=== PATIENT | male | born 1955 | race Caucasian/White ===

== ENCOUNTER 2018-06-01 08:57 | Emergency (ER) | payer OTHER ==
[~2018-06-01] VITALS: Ht 182.9 cm; Wt 84.4 kg
[2018-06-01] MEDS ORDERED: PROSCAR 5MG TABL5 MG PO (09:12)
[2018-06-01] MEDS ORDERED: PREDNISONE 20 M20 MG PO (09:13)
[2018-06-01] MEDS ORDERED: SIMVASTATIN40 MG PO (09:13)
[2018-06-01] MEDS ORDERED: AMARYL4 MG PO (09:13)
[2018-06-01] MEDS ORDERED: TRADJENTA5 MG (09:13)
[2018-06-01] MEDS ORDERED: IMBRUVICA420 MG PO (09:14)
[2018-06-01] MEDS ORDERED: PROTONIX40 M1 PO (09:14)
[2018-06-01] MEDS ORDERED: GLUCOPHAGE XR500 MG PO (09:15)
[2018-06-01] MEDS ORDERED: FLOMAX0.4 MG PO (09:15)
[2018-06-01] MEDS ORDERED: PAXIL10 MG PO (09:15)
[2018-06-01 09:35] LABS: HEMATOCRIT 41.7 % (42.0-52.0); HEMOGLOBIN 14.1 gm/dL (14.0-18.0); MCH 31.9 pg (26.0-34.0); MCHC 33.7 g/dL (28.0-37.0); MCV 94.7 fL (80.0-100.0); MPV 7.2 fl. (7.2-11.1); NUCLEATED RBCS 1 /100WBC; PLATELET COUNT* 130 thou/uL (150-400); RDW-CV 14.5 % (10.5-14.5); WBC 6.6 thou/uL (4.0-11.0)
[2018-06-01 09:41] LABS: APTT 22.9 Seconds (25.0-31.3); PROTIME 10.5 Seconds (9.20-11.50)
[2018-06-01 09:52] LABS: ANION GAP 8 mmol/L (7-16); BUN 24 mg/dL (7-18); CALCIUM 8.3 mg/dL (8.5-10.1); CHLORIDE 100 mmol/L (98-107); CO2 26 mmol/L (21-32); CREATININE 1.2 mg/dL (0.6-1.3); GLUCOSE 256 mg/dL (70-99); POTASSIUM 3.8 mmol/L (3.5-5.1); SODIUM 134 mmol/L (136-145)
[2018-06-01 10:01] LABS: ALBUMIN 3.3 g/dL (3.4-5.0); ALKALINE PHOSPHATASE 58 U/L (46-116); CK-MB MASS 1.4 ng/mL (<0.5-3.6); NT-PRO BRAIN NAT PEPTIDE 38 pg/mL (<300); SGOT 36 U/L (15-37); SGPT 28 U/L (30-65); TOTAL PROTEIN 6.4 g/dL (6.4-8.2); TROPONIN-I LEVEL <0.06 ng/mL (<0.06)
[2018-06-01] MEDS ORDERED: NORCO 5-325 TA1 EACH PO (10:13)
[2018-06-01] MEDS ORDERED: FLEXERIL PO (10:13)
[2018-06-01 10:22] LABS: ABSOLUTE BASOPHILS 0.1 thou/uL (0.0-0.2); ABSOLUTE EOSINOPHILS 0.1 thou/uL (0.0-0.7); ABSOLUTE LYMPHOCYTES 1.7 thou/uL (0.8-5.3); ABSOLUTE MONOCYTES 0.1 thou/uL (0.0-1.2); ABSOLUTE NEUTROPHILS 4.6 thou/uL (1.6-8.1); METAMYELOCYTES 2 %; MYELOCYTES 2 %
[2018-06-01 10:23] LABS: CLUMPED PLTS RARE
[2018-06-01 10:24] LABS: OVALOCYTES Occasional; PLATELET ESTIMATE DECREASED; POLYCHROMASIA Occasional
[2018-06-01 10:25] LABS: ANISOCYTOSIS 1+; BURR CELLS Occasional; LARGE PLATELETS OCCASIONAL
[2018-06-01 10:39] LABS: URINE BILIRUBIN NEGATIVE (Negative); URINE BLOOD NEGATIVE (Negative); URINE CLARITY CLEAR; URINE COLOR YELLOW; URINE GLUCOSE-RANDOM 1+ (Negative); URINE KETONES 1+ (Negative); URINE LEUKOCYTES-REFLEX NEGATIVE (Negative); URINE NITRITE-REFLEX NEGATIVE (Negative); URINE PROTEIN TRACE (Negative)
[2018-06-01 11:11] VITALS: BP 139/84
--- NOTE | 2018-06-01 17:23 | EKG ---
[place] [address] ELECTROCARDIOGRAM REPORT Name: JUNIORBRYCE Room: [facility]#: [id number] Admission: 06/01/18 Attend Phys: Discharge: 06/01/18 Date of : 51 Report #: [id number] THIS REPORT FOR: //name// [facility] ED Test Date: 2018-06-01 Test Time: 09:19:13 Pat Name: BRYCE PACHECO Department: Room: Gender: M [employer]room Worker: EVARISTO : 1955 Requested By: Eddie Trinh Order Number: [id number] MD: Lucio Padilla Measurements Intervals [place] Rate: 77 P: 35 NV: 157 QRS: -54 QRSD: 97 T: 42 QT: 376 QTc: 426 Interpretive Statements Sinus rhythm Left atrial enlargement Left anterior fascicular block No previous ECG available for comparison Electronically Signed On 06-01-2018 17:23:14 CDT by Lucio Padilla [email or web address] <ELECTRONICALLY SIGNED> By: Lucio Padilla MD, [facility] 06/01/18 1723 8 8 Lucio Padilla MD, FACC /EPI
== END 2018-06-01 11:13 | disposition home or self-care (01) ==
LOC: M.ERS 08:57
PROVIDERS: Family Medicine
DX: R53.1 Weakness (principal); L30.9 Dermatitis, unspecified; R52 Pain, unspecified; E11.9 Type 2 diabetes mellitus without complications; Z88.1 Allergy status to other antibiotic agents; Z88.2 Allergy status to sulfonamides; Z88.8 Allergy status to other drugs, medicaments and biological substances